=== PATIENT | male | born 1995 | race Caucasian/White ===

== ENCOUNTER 2016-11-10 23:27 | Emergency (ER) | payer OTHER ==
[2016-11-10 23:36] VITALS: TEMP 97.5; O2SAT 94
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
[2016-11-11] MEDS ORDERED: HYDROCOD/APAP 5/325 PREPACK#6 BTL TAKEHOME ONE (00:25)
[2016-11-11] MEDS ORDERED: HYDROCODONE/APAP 5/325 TAB PO ONE (00:25)
[2016-11-11 00:59] VITALS: BP 120/69; PULSE 84; RESP 16
== END 2016-11-11 00:59 | disposition home or self-care (01) ==
DX: S42.021A Displaced fracture of shaft of right clavicle, initial encounter for closed fracture (principal); S40.211A Abrasion of right shoulder, initial encounter; S09.90XA Unspecified injury of head, initial encounter; V18.0XXA Pedal cycle driver injured in noncollision transport accident in nontraffic accident, initial encounter
CPT/HCPCS: A4565